=== PATIENT | female | born 1990 | race Caucasian/White ===

== ENCOUNTER → 2018-07-19 13:09 | Outpatient (CLI) | payer OTHER, SELFPAY ==
[2018-07-19 10:51] VITALS: BMI 26.9
== END ==
PROVIDERS: Referring Provider Obstetrics & Gynecology; Visit Provider Obstetrics & Gynecology
DX: Z34.03 Encounter for supervision of normal first pregnancy, third trimester (principal); Z3A.36 36 weeks gestation of pregnancy
CPT/HCPCS: 87081

== ENCOUNTER 2018-08-26 18:58 | Inpatient (IN) | payer OTHER, SELFPAY ==
[2018-07-19 10:51] VITALS: BMI 26.9
[2018-08-26 19:26] VITALS: BMI 27.2
[2018-08-26] MEDS: 0.9% Saline Lock 10 ML Syringe IV ×2 (20:05→21:09)
[2018-08-26 20:30] LABS: Absolute Lymphocyte Count 1.69 X10^3/ul (0.83-4.51); Basophil# 0.02 X10^3/uL; Basophil% 0.2 % (0-1); Eosinophil# 0.13 X10^3/uL; Eosinophils% 1.2 % (0-5); Hematocrit 35.6 % (37-47); Hemoglobin 11.9 g/dl (12.0-15.0); Lymphocyte # 1.69 X10^3/ul (4.0); Lymphocyte % 15.8 % (19-41); Mean Corp Hgb Conc 33.4 g/gl (32-36); Mean Corpuscular Hgb 28.3 pg (27.0-32.0); Mean Corpuscular Volume 84.8 fL (81-99); Mean Platelet Vol. 12.9 fl (6.2-12.0); Monocyte# 0.83 X10^3/uL; Monocyte% 7.7 % (0-10); Neutrophil # 8.04 X10^3/uL (2.7-7.7); Neutrophil % 74.9 % (47-70); Platelet Count 81 K/mm3 (150-450); RBC Distribution Width CV 13.5 % (11.6-14.6); RBC Distribution Width SD 41.2 fl (35.1-43.9); White Blood Count 10.7 K/mm3 (4.4-11.0)
[2018-08-26 20:34] LABS: POSITIVE COUNT NO; POSITIVE DIFFERENTIAL NO; POSITIVE MORPHOLOGY NO
[2018-08-26 20:59] LABS: Mucous, Urine 0 SEEN /hpf (<or=2+); Red Blood Cells-Urine 0 SEEN /hpf (0-5); White Blood Cells 0 SEEN /hpf (0-5)
[2018-08-26 21:06] LABS: ALB/GLOB Ratio 0.8 RATIO (0.9-2.4); AST(SGOT) 19 U/L (15-37); Alanine Aminotransfer ALT/SGPT 14 U/L (13-56); Albumin, Serum 2.9 g/dL (3.2-5.0); Alkaline Phosphatase 133 U/L (45-117); Anion Gap 6 (5-15); BUN 10 mg/dL (7-18); BUN/Creat Ratio 12.2 RATIO (10-20); Calcium,Total 8.3 mg/dL (8.5-10.1); Chloride 108 mmol/L (98-107); Creatinine, Serum 0.82 mg/dL (0.55-1.02); EST Glomerular Filtration Rate 89 mL/min (>60); Est Glom Filt Rate - Afr Amer 108 mL/min (>60); Estimated Creatinine Clearance 104.88 ml/min; Globulin 3.8 g/dL (2.2-4.2); Glucose 76 mg/dL (74-106); Potassium 3.6 mmol/L (3.5-5.1); Protein, Total 6.7 g/dL (6.4-8.2); Sodium Level 138 mmol/L (136-145)
[2018-08-26 21:07] LABS: Rubella IgG 5.5 IU/mL
[2018-08-26] MEDS: Lactated Ringers 1,000 ML 50 ML IV (21:08)
[2018-08-26] MEDS: 0.9% Normal Saline 100 ML IV.SOLN. INTRA-UTER (21:09)
[2018-08-26] MEDS: Oxytocin 30 units/NS 500 ml 30 UNITS/500 ML IV.SOLN IV (21:09)
[2018-08-26 21:11] LABS: Color, Urine Yellow (Yellow); Glucose, Dipstick Normal (Normal); Ketone-Dipstick Negative (Negative); Leukocyte Esterase-Dipstick 25 /ul (Negative); Nitrite-Dipstick Negative (Negative); Occult Blood-Urine 10 /ul (Negative); Protein-Dipstick Negative (Negative); Urine Bilirubin Dipstick Negative (Negative); Urine Clarity Clear (Clear); Urine Urobilinogen Normal (Normal)
[2018-08-26 21:23] LABS: Bacteria 1+ /hpf (None Seen); Squamous Epithelial Cells - UA 0-5 SEEN /hpf (5-10)
[2018-08-26 21:35] LABS: HIV - WCH Non-Reactive (Nonreactive)
[2018-08-26 22:55] LABS: Chlamydia Trachomatis by PCR Negative (Negative); Neisserai gonorrhoeae by PCR Negative (Negative); Probe Check PASS; Sample Adequacy Control PASS; Specimen Processing Control PASS
[2018-08-27 02:06] LABS: Rapid Plasmin Reagin (RPR) NONREACTIVE (NONREACTIVE)
[2018-08-27] MEDS: Mag Hydrox/Al Hydrox/Simeth 30 ML UDC PO (03:25)
[2018-08-27] MEDS: Acetaminophen 325 MG Tablet PO (03:53)
[2018-08-27] MEDS: Nalbuphine 10 MG/ML Ampul IV (06:05)
[2018-08-27] MEDS: Amnioinfusion- 0.9% NS 1,000 ML IV.SOLN. 500 ML INTRA-UTER (06:15)
--- NOTE | 2018-08-27 06:44 | PCM.HP.OB ---
- Problem List (1) Post-dates Status: Acute History Date of Admission: 08/27/18 - ] Final ADAM: 08/17/18 Gestational age: 41 Weeks and 3 Days History of this : This is a 28 year-old, at 41 weeks gestational age presents for induction of labor secondary to postdates. Has been receiving care by the linoleum layer helper Zaira Phillips and was seen in my office at 36 weeks for a consultation and GBS test. She has had a low risk and complicated with normal blood pressures however upon admission her platelet count was noted to be 80,000 with suspected gestational thrombocytopenia as she is no history of ITP and no signs or symptoms of preeclampsia. She admits good movement and denies any vaginal bleeding or loss of fluid or regular contractions. Patient previously had declined labs at her outpatient consultation but is in agreement to panel today. Medical History: Medical History (Last Reviewed 07/19/18 @ 10:53 by Addie Vargas) Anxiety and depression F41.9, F32.9 Allergies No Known Allergies Allergy (Verified 08/26/18 19:27) Smoking Status: Never smoker Alcohol: None Number of Fetus(es): 1 Heart Tracin moderate variability reactive no decelerations category I tracing [facility] [place]: regular History Past Pregnancies: Past Pregnancies Delivery Date Name GA/Weeks Outcome Route Weight Gender Labor Length Anesthesia Delivery Location Provider FOB Labs: Mom's Problem List Problem Status Onset Code Post-dates Acute O48.0 Mom's Labs & Results 08/26/18 08/26/18 08/26/18 20:04 20:04 20:04 WBC 10.7 RBC 4.20 Hgb 11.9 L Hct 35.6 L MCV 84.8 MCH 28.3 MCHC 33.4 RDW 13.5 RDW Differential 41.2 Plt Count 81 L MPV 12.9 H Immature Gran % (Auto) 0.200 Neut % (Auto) 74.9 H Lymph % (Auto) 15.8 L [place] % (Auto) 7.7 Eos % (Auto) 1.2 Baso % (Auto) 0.2 Absolute Neuts (auto) 8.0 H Absolute Lymphs (auto) 1.69 Total Counted Not Reportable Sodium Potassium Chloride Carbon Dioxide Anion Gap BUN Creatinine Estim Creat Clear Calc Est GFR (MDRD) Af Amer Est GFR (MDRD) Non-Af BUN/Creatinine Ratio Glucose Calcium Total Bilirubin AST ALT Alkaline Phosphatase Total Protein Albumin Globulin Albumin/Globulin Ratio Urine Color Urine Clarity Urine pH Ur Specific Rentz Urine Protein Urine Glucose (UA) Urine Ketones Urine Occult Blood Urine Nitrite Urine Bilirubin Urine Urobilinogen Ur Leukocyte Esterase Urine RBC Urine WBC Ur Squamous Epith Cells Urine Bacteria Urine Mucus RPR NONREACTIVE Chlam trachomat DNA PCR Hep Bs Antigen Hepatitis C Ab (EIA) HIV 1&2 Antibody N.gonorrhoeae DNA (PCR) Rubella IgG Antibody 5.5 Group B Strep DNA Specimen Comment Blood Type Antibody Screen 08/26/18 08/26/18 08/26/18 20:04 20:04 20:04 WBC RBC Hgb Hct MCV MCH MCHC RDW RDW Differential Plt Count MPV Immature Gran % (Auto) Neut % (Auto) Lymph % (Auto) [place] % (Auto) Eos % (Auto) Baso % (Auto) Absolute Neuts (auto) Absolute Lymphs (auto) Total Counted Sodium Potassium Chloride Carbon Dioxide Anion Gap BUN Creatinine Estim Creat Clear Calc Est GFR (MDRD) Af Amer Est GFR (MDRD) Non-Af BUN/Creatinine Ratio Glucose Calcium Total Bilirubin AST ALT Alkaline Phosphatase Total Protein Albumin Globulin Albumin/Globulin Ratio Urine Color Urine Clarity Urine pH Ur Specific Rentz Urine Protein Urine Glucose (UA) Urine Ketones Urine Occult Blood Urine Nitrite Urine Bilirubin Urine Urobilinogen Ur Leukocyte Esterase Urine RBC Urine WBC Ur Squamous Epith Cells Urine Bacteria Urine Mucus RPR Chlam trachomat DNA PCR Hep Bs Antigen Pending Hepatitis C Ab (EIA) Pending HIV 1&2 Antibody Non-Reactive N.gonorrhoeae DNA (PCR) Rubella IgG Antibody Group B Strep DNA Specimen Comment Blood Type A POSITIVE Antibody Screen NEGATIVE 08/26/18 08/26/18 08/26/18 20:04 20:40 20:40 WBC RBC Hgb Hct MCV MCH MCHC RDW RDW Differential Plt Count MPV Immature Gran % (Auto) Neut % (Auto) Lymph % (Auto) [place] % (Auto) Eos % (Auto) Baso % (Auto) Absolute Neuts (auto) Absolute Lymphs (auto) Total Counted Sodium 138 Potassium 3.6 Chloride 108 H Carbon Dioxide 24.0 Anion Gap 6 BUN 10 Creatinine 0.82 Estim Creat Clear Calc 104.88 Est GFR (MDRD) Af Amer 108 Est GFR (MDRD) Non-Af 89 BUN/Creatinine Ratio 12.2 Glucose 76 Calcium 8.3 L Total Bilirubin 0.30 AST 19 ALT 14 Alkaline Phosphatase 133 H Total Protein 6.7 Albumin 2.9 L Globulin 3.8 Albumin/Globulin Ratio 0.8 L Urine Color Yellow Urine Clarity Clear Urine pH 6.0 Ur Specific Rentz 1.010 Urine Protein Negative Urine Glucose (UA) Normal Urine Ketones Negative Urine Occult Blood 10 H Urine Nitrite Negative Urine Bilirubin Negative Urine Urobilinogen Normal Ur Leukocyte Esterase 25 H Urine RBC 0 SEEN Urine WBC 0 SEEN Ur Squamous Epith Cells 0-5 SEEN Urine Bacteria 1+ Urine Mucus 0 SEEN RPR Chlam trachomat DNA PCR Negative Hep Bs Antigen Hepatitis C Ab (EIA) HIV 1&2 Antibody N.gonorrhoeae DNA (PCR) Negative Rubella IgG Antibody Group B Strep DNA Cancelled Specimen Comment Cancelled Blood Type Antibody Screen Course Did the patient receive Yes care? Labs Blood Type: A RH: POSITIVE Rubella status Equivocal HbSAg Collected on Admission HIV/AIDS Non-Reactive Group B Strep: Negative Other Lab Procedures/Results/ all labs collected on admission Comments: Current Obstetrical History Gestational Diabetes unknown did not do screen Incompetent Cervix No Infertility No IUGR No Macrosomia No Hypertension/Pre-eclampsia No Placenta Previa/Abruption No PTL/PROM No Uterine anomaly No Oligohydramnios No Polyhydramnios No Multiple gestation No Past Medical History Asthma No Diabetes No Hypertension No Heart disease No Mitral valve prolapse No Neurologic/Seizure disorder/ No Migraines Kidney disease No Liver disease No Varicosities No Clotting disorders/Hx of DVT No Thyroid Dysfunction No Other medical diseases Yes: anemia Psychiatric disorders Yes: depression, anxiety Major trauma No Abnormal PAP smear Yes: cysts, biopsy normal Sleep apnea No Mammogram in the last 2 years No Social History Marital Status: Alleged father Luis Hx Smoking No Smoking Status Never smoker Expected Delivery Method: Spontaneous Vaginal Review of Systems Constitutional: Denies: Fever, Malaise Eyes: Denies: Blurred vision, Vision Change HEENT: Denies: Head Aches, Visual Changes Cardiovascular: Denies: Chest Pain, Palpitations Respiratory: Denies: Cough, Shortness of Breath, Wheezing Gastrointestinal: Denies: Abdominal Pain, Diarrhea, Nausea, Vomiting Genitourinary: Denies: Dysuria, Hematuria Musculoskeletal: Denies: Joint Pain, Muscle pain Skin: Denies: Lesions, Rash Neurological: Denies: Blurred vision, Focal weakness, Headaches Psychiatric: Denies: Anxiety, Depression Endocrine: Denies: Heat/ Cold Intolerance Hematologic/ Lymphatic: Denies: Easy Bruising, Easy Bleeding Physical Exam General: Alert, Cooperative, No apparent distress HEENT: Atraumatic, Normocephalic. Negative for: Thyromegaly, Lymphadenopathy Cardiovascular: Regular rate Lungs: Normal air movement Abdomen: Soft, Non Tender, Gravid Neurological: Deep Tendon Reflexes 2+/4 and Symmetrical, Neuro grossly intact. Negative for: Clonus [employer]: Normal external genitalia. Negative for: Vulvar lesions Estimated gestational size: Appropriate for gestational size Presentation: Cephalic Cervix Dilation (cm): 1.5 Station: -1 Effacement (%): 70 Assessment/Plan All Active Problems (Last Reviewed 07/19/18 @ 10:53 by Addie Vargas) Post-dates (Acute) This is a 28 year-old, at 41 weeks gestational age presents for IOL secondary to postdates Patient presents IOL, plan management for , pitocin/AROM when able after Taylor bulb was placed. Pain management: Desires minimal intervention, open to Nubain. GBS negative. Management of any complications: Gestational thrombocytopenia, discussed with the patient she will not be a candidate for regional anesthesia due to this. Her liver enzymes checked and within normal limits of blood pressures within normal limits. I have reviewed the [facility] and made any clinically relevant updates.
[2018-08-27] MEDS: Lactated Ringers 1,000 ML 50 ML IV (07:04)
[2018-08-27] MEDS: Oxytocin 30 units/NS 500 ml 30 UNITS/500 ML IV.SOLN 334 UNITS IV (09:26)
[2018-08-27] MEDS: Oxytocin 30 units/NS 500 ml 30 UNITS/500 ML IV.SOLN 167 UNITS IV (09:56)
--- NOTE | 2018-08-27 09:56 | CPS ---
RT CALLED PATIENTS NURSE AND REPORTED LOW CRITICAL P02 OF 8. NURSE STATED THAT SHE WOULD INFORM DOCTOR.
--- NOTE | 2018-08-27 14:25 | PCM.OB.VAG ---
- Problem List (1) Post-dates Status: Acute Vaginal Delivery Maternal Presentation: Medically Indicated Induction iol postdates Method of Induction: Pitocin, Taylor Bulb Medical Reason for Induction: Post term Amniotic Membrane Rupture Type: Spontaneous Amniotic Fluid Description: Clear Final ADAM: 08/10/18 Gestational age: 42 Weeks and 3 Days Date of Procedure: 08/27/18 Pre-Operative Diagnosis: iol postdates Post-Operative Diagnosis: same Surgery/ Procedure Performed: Spontaneous Vaginal Delivery Type of Anesthesia: Local with 1% lidocaine Description of Procedure: Patient began pushing and a prolonged bradycardia was noted and therefore the perineum was injected with 1% lidocaine and a midline episiotomy cut. And delivered the head in the HANNA presentation. The head was delivered atraumatically and a loose shoulder cord ?1 was identified and easily reduced during delivery. The anterior and posterior shoulders delivered without complication followed by the rest of the infant and the infant was placed on the maternal abdomen. Delayed cord clamping was employed for approximately 60 seconds. Cord was clamped and cut and gentle traction was applied to the cord and the placenta delivered spontaneously immediately following it was noted to be intact with three-vessel cord. The perineum and vagina were inspected and noted to have no extension of the episiotomy which was repaired in the usual fashion with 3-0 Vicryl repeat.. EBL was 400 cc. Patient and infant tolerated delivery well. Some mild uterine atony was noted which was treated with Pitocin and Methergine and bimanual massage Presentation: HANNA Placental Delivery Description: Spontaneous Placenta Disposition: [facility] Cord Vessel Description: 3 Vessels Cord Entanglement: None Estimated Blood Loss: 400 Infant A gender: Male Episiotomy Description: Midline, Perineal Extension/lac, 2nd degree Laceration: None Medications given after delivery: IV Pitocin, IM Methergin Complications: None
--- NOTE | 2018-08-27 14:25 | PCM.DCVAG ---
Discharge Diet: No Restrictions Discharge Activity: Return to Normal Activity, May not drive while taking narcotic pain medications., May Shower May resume sexual activity in: 4-6 weeks Call your doctor if your incision/area has: Continuous Slow Oozing, Sudden Increased Bleeding, Increased Pain/ Swelling, Increased Redness, Foul Smelling Discharge Additional Instructions: If you experience any of the following, contact your healthcare provider. Bleeding that soaks a pad every hour for 2 hours Fever 100.4 or higher Unrelieved incision or abdominal pain Swelling, redness, discharge or bleeding from your incision or episiotomy site Your incision begins to separate Problems urinating (including inability to urinate or burning while urinating). Visual changes Severe headache Flu-like symptoms Pain or redness in one of both of your breasts Pain, warmth, tenderness or swelling in your legs, especially the calf area Frequent nausea and vomiting Symptoms of depression or anxiety If you experience any of the following, call 911 or go to the nearest Emergency Room. Chest pain Problems breathing Seizure activity Partial or complete paralysis of a body part, slurred speech, weakness or drooping of the face, or a sudden inability to walk or hold your balance Allergies/Adverse Reactions: Allergies No Known Allergies Allergy (Verified 08/26/18 19:27) Please Follow Up With: Isabel Rivas MD - [phone] When: Call to make an appointment with your doctor in 6 weeks. If you had elevated Blood pressure or 4th degree laceration you will need to be seen in 2 weeks. Test Results: Test results from this visit will be discussed in further detail at your follow-up appointment, if applicable.
--- NOTE | 2018-08-27 14:26 | DCINST_ITS ---
Discharge Diet: No Restrictions Discharge Activity: Return to Normal Activity, May not drive while taking narcotic pain medications., May Shower May resume sexual activity in: 4-6 weeks Call your doctor if your incision/area has: Continuous Slow Oozing, Sudden Increased Bleeding, Increased Pain/ Swelling, Increased Redness, Foul Smelling Discharge Additional Instructions: If you experience any of the following, contact your healthcare provider. * Bleeding that soaks a pad every hour for 2 hours * Fever 100.4 or higher * Unrelieved incision or abdominal pain * Swelling, redness, discharge or bleeding from your incision or episiotomy site * Your incision begins to separate * Problems urinating (including inability to urinate or burning while urinating). * Visual changes * Severe headache * Flu-like symptoms * Pain or redness in one of both of your breasts * Pain, warmth, tenderness or swelling in your legs, especially the calf area * Frequent nausea and vomiting * Symptoms of depression or anxiety If you experience any of the following, call 911 or go to the nearest Emergency Room. * Chest pain * Problems breathing * Seizure activity * Partial or complete paralysis of a body part, slurred speech, weakness or drooping of the face, or a sudden inability to walk or hold your balance Allergies/Adverse Reactions: Allergies No Known Allergies Allergy (Verified 08/26/18 19:27) Please Follow Up With: Isabel Rivas MD - [phone] When: Call to make an appointment with your doctor in 6 weeks. If you had elevated Blood pressure or 4th degree laceration you will need to be seen in 2 weeks. Test Results: Test results from this visit will be discussed in further detail at your follow- up appointment, if applicable.
[2018-08-27 16:00] VITALS: BP 118/78; PULSE 78; RESP 17; TEMP 36.7; O2SAT 99
[2018-08-27 19:55] VITALS: BP 124/79; PULSE 70; RESP 15; TEMP 37.1; O2SAT 97
[2018-08-27 23:00] VITALS: BP 137/92; PULSE 82; RESP 16; TEMP 37.2; O2SAT 95
[2018-08-28 04:30] VITALS: BP 103/71; PULSE 71; RESP 15; TEMP 37.1; O2SAT 96
--- NOTE | 2018-08-28 07:44 | PCM.PN.OB ---
Patient Problems: Active and Suspected Problems (Last Reviewed 07/19/18 @ 10:53 by Addie Vargas) Post-dates (Acute) Subjective: doing well no complaints pain controlled no CP SOB N V ambulating well tolerating po lochia moderate, going well - Physical Exam General: Alert, Oriented x3 Vital Signs Temp Pulse Resp BP Pulse Ox 98.8 F 71 15 103/71 96 08/28/18 04:30 08/28/18 04:30 08/28/18 04:30 08/28/18 04:30 08/28/18 04:30 Oxygen Delivery Method Room Air Weight: 179 lb 6.4 oz Body Mass Index (BMI) 27.2 Intake and Output for Last 24 Hours 08/26/18 08/27/18 08/28/18 23:59 23:59 23:59 Intake Total 1745 / 1745 Output Total 1150 / 1150 Balance 595 / 595 Medical Necessity - Tobacco Use Smoking Status: Never smoker Assessment/Plan All Active Problems (Last Reviewed 07/19/18 @ 10:53 by Addie Vargas) Post-dates (Acute) s/p PPD # 1 1. routine post delivery care 2. breast feeding- support given 3. rh positive 4. rubella immune dc home
[2018-08-28 09:18] VITALS: BP 132/85; PULSE 73; RESP 14; TEMP 36.8
[2018-08-28 12:37] VITALS: BP 137/85; PULSE 82; RESP 14; TEMP 36.5
[2018-08-28 16:52] LABS: HEPATITIS B SURFACE AG Negative (Negative); Hep C Antibodies <0.1 s/co ratio (0.0-0.9)
--- NOTE | 2018-09-02 17:20 | NURSING ---
Follow up phone call made and Mom doing well. Milk is in and bleeding and recovery is uneventful. All the nurses were great! Encouraged to let us know if we can assist in anyway. Shane NAQVI IBCLC
== END 2018-08-28 13:30 | disposition home or self-care (01) | DRG 806 ==
PROVIDERS: Admitting Provider Obstetrics & Gynecology; Referring Provider Obstetrics & Gynecology; Visit Provider Obstetrics & Gynecology
DX: O48.1 Prolonged pregnancy (principal); O99.12 Other diseases of the blood and blood-forming organs and certain disorders involving the immune mechanism complicating childbirth; Z37.0 Single live birth; D69.6 Thrombocytopenia, unspecified; O76 Abnormality in fetal heart rate and rhythm complicating labor and delivery; Z3A.42 42 weeks gestation of pregnancy; O69.82X0 Labor and delivery complicated by other cord entanglement, without compression, not applicable or unspecified; O75.89 Other specified complications of labor and delivery
CPT/HCPCS: 59050; 80053; 81001; 85025; 86592; 86703; 86762; 86803; 86850; 86900; 87340; 87491; 87591; 99218; J7030; J7120; A4216; G0378

== ENCOUNTER → 2018-10-18 | Outpatient (CLI) | payer OTHER, SELFPAY ==
[2018-10-18 16:02] VITALS: BMI 27.2
[2018-10-21 14:04] LABS: HPV Reflexed? NOT INDICATED
== END | disposition home or self-care (01) ==
LOC: LABSPEC 16:46
PROVIDERS: Referring Provider Obstetrics & Gynecology; Visit Provider Obstetrics & Gynecology
DX: Z12.4 Encounter for screening for malignant neoplasm of cervix (principal)
CPT/HCPCS: 87624; 88175; G0145